=== PATIENT | female | born 1975 | race Two or more races ===

== ENCOUNTER 2024-07-20 20:40 | Emergency (ER) | payer MEDICAID, SELFPAY ==
[2024-07-20 20:41] VITALS: BMI 34.2
--- NOTE | 2024-07-20 21:55 | EDNOTE_ITS ---
Upper Respiratory Inf. RME/HPI General Chief Complaint: Flu Like Symptoms Stated Complaint: FLU / FEVER X3DAYS Time Seen by Provider: 07/20/24 20:46 Arrival date/time: 07/20/24 20:40 This is a 49-year-old female that comes in with complaints of cough, headache, fever and congestion for the past 3 days. Patient denies any sick contacts at home. Related Data Previous Rx's ?Medication ?Instructions ?Recorded ibuprofen 800 mg tablet 800 mg PO TID PRN pain #30 t abs 06/17/17 acetaminophen 500 mg tablet 1,000 mg (2 x 500 mg) PO Q 6H PRN 07/20/24 fever or pain #20 tabs ibuprofen 800 mg tablet (IBU) 800 mg PO Q6H PRN pain # 14 tabs 07/20/24 promethazine-DM 6.25 mg-15 mg/5 mL 5 ml PO Q6H PRN cou gh #240 mL 07/20/24 oral syrup Allergies Allergy/AdvReac Type Severity Reaction Status Date / Time No Known Allergies Allergy Verified 06/17/17 10:00 Course Orders Category Date Time Status Bedside COVID-19 Antigen Test NOW Care 07/20/24 21:54 Active Bedside Influenza A&B Antigen Test NOW Care 07/20/24 21:54 Active XR chest 2V Stat Exams 07/20/24 22:03 Completed Acetaminophen Tab [Tylenol ES Tab] Med 07/20/24 21:55 Discontinued 500 mg PO X1 ONE Ibuprofen Tab [Motrin Tab] Med 07/20/24 21:55 Pending 800 mg PO X1 ONE Promethazine/Dextromethorph [Phenergan Dm Syrup] Med 07/20/24 21:55 Pending 5 ml PO X1 ONE Vital Signs Vital signs: Vital Signs Temperature 99.5 F 07/20/24 21:58 Pulse Rate 100 07/20/24 21:58 Respiratory Rate 18 07/20/24 21:58 Blood Pressure 129/82 07/20/24 21:58 Pulse Oximetry (%) 97 07/20/24 21:58 Oxygen Delivery Method Room Air 07/20/24 21:58 Upper Respiratory Infection MDM Narrative MDM Narrative:: Patient was positive for influenza A. Patient was given Promethazine DM, ibuprofen and Tylenol. Patient feels better. Patient outside the window for Tamiflu. Will treat with supportive measures. Patient told to follow-up with primary provider in 1 to 2 days. Come back to emergency room symptoms change or worsen. chest x ray: FINDINGS: Normal heart size No lobar pneumonia or pulmonary edema The osseous structures are intact IMPRESSION: No pneumonia or pulmonary edema Medications / Prescriptions Medication administrations:: Medication Administration History Ibuprofen (Ibuprofen Tab 400 Mg Tablet) 800 mg PO X1 ONE Stop: 07/20/24 21:56 Promethazine HCl/Dextromethorphan (Promethazine/Dm Syrup 5 Ml Dose) 5 ml PO X1 ONE; Protocol Stop: 07/20/24 21:56 Discontinued Medications Acetaminophen (Acetaminophen 500 Mg Tablet) 500 mg PO X1 ONE Stop: 07/20/24 21:56 Discharge Plan Plan Patient Disposition: HOME (Self Care) Patient condition on transfer: Stable Prescriptions/Referrals Prescriptions/Med Rec: New ibuprofen [IBU] 800 mg tablet 800 mg PO Q6H PRN (Reason: pain) Qty: 14 0RF acetaminophen 500 mg tablet 1,000 mg PO Q6H PRN (Reason: fever or pain) Qty: 20 0RF promethazine-DM 6.25-15 mg/5 mL syrup 5 ml PO Q6H PRN (Reason: cough) Qty: 240 0RF No Action ibuprofen 800 mg tablet 800 mg PO TID PRN (Reason: pain) Qty: 30 0RF Referrals: Temporary Provider,ED [Physician] - In 1 week Problem List Clinical Impression: Influenza A Patient/Caregiver Discharge Instructions Discharge Activity: activity as tolerated Education Materials: ED Influenza (Adult) Additional Instructions: Follow up with primary provider in 1-2 days. Come back to ED if symptoms change or worsen Print Language: [place]ese Stand Alone Forms: [employer] Award Info., Patient Portal Info Letter PA/SENIOR LINUX ENGINEER Supervising Physician PA/SENIOR LINUX ENGINEER Supervising Physician: alli
[2024-07-20 21:58] VITALS: BP 129/82; PULSE 100; RESP 18; TEMP 37.5; O2SAT 97
--- NOTE | 2024-07-20 22:03 | XR_ITS ---
Examination: PA lateral chest 2 views FEV1 upright PA and lateral chest 2 views Standing time client July 20, 2024 10:14 PM INDICATIONS: Coughing congestion beginning 3 days ago. FINDINGS: Normal heart size No lobar pneumonia or pulmonary edema The osseous structures are intact IMPRESSION: No pneumonia or pulmonary edema
[2024-07-20] MEDS: IBUPROFEN TAB 400 MG TABLET 800 MG PO (23:40)
[2024-07-20] MEDS: ACETAMINOPHEN 500 MG TABLET PO (23:40)
== END 2024-07-20 23:45 | disposition home or self-care (01) ==
PROVIDERS: Emergency Provider Emergency Medicine
DX: J10.1 Influenza due to other identified influenza virus with other respiratory manifestations (principal)
CPT/HCPCS: 71046; 87400; 87811; 99283; A9270

== ENCOUNTER 2024-09-28 22:20 | Emergency (ER) | payer SELFPAY ==
[2024-09-28 22:21] VITALS: BMI 31.1
[2024-09-28 22:55] VITALS: BP 145/89; PULSE 100; RESP 18; TEMP 37.2; O2SAT 96
--- NOTE | 2024-09-28 23:04 | EDNOTE_ITS ---
ED Skin Abcess FB-RME/HPI General Chief complaint: General Adult/Misc Complain Stated complaint: POSS INFECTED MOSQITO BITE Time Seen by Provider: 09/28/24 22:58 Arrival date/time: 09/28/24 22:20 49F with no significant PMH presents to ED with L hand skin pain after she got bit by some insect, scratched it, and then it became painful with discharge. Limitations: no limitations Related Data Previous Rx's ?Medication ?Instructions ?Recorded ibuprofen 800 mg tablet 800 mg PO TID PRN pain #30 t abs 06/17/17 acetaminophen 500 mg tablet 1,000 mg (2 x 500 mg) PO Q 6H PRN 07/20/24 fever or pain #20 tabs ibuprofen 800 mg tablet (IBU) 800 mg PO Q6H PRN pain # 14 tabs 07/20/24 promethazine-DM 6.25 mg-15 mg/5 mL 5 ml PO Q6H PRN cou gh #240 mL 07/20/24 oral syrup doxycycline hyclate 100 mg tablet 100 mg PO BID 7 days #14 tabs 09/28/24 Allergies Allergy/AdvReac Type Severity Reaction Status Date / Time No Known Allergies Allergy Verified 09/28/24 22:26 Review of Systems Review of Systems Systems Reviewed: All systems reviewed, normal except as documented Constitutional Constitutional: Reports system reviewed and no additional complaints, except as documented, Denies fever(s) and Denies headache(s) ENT Ears, Nose, Mouth, and Throat: Denies disequilibrium and Denies headache(s) Cardiovascular Cardiovascular: Reports system reviewed and no additional complaints, except as documented, Denies chest pain and Denies dyspnea Respiratory Respiratory: Reports system reviewed and no additional complaints, except as documented, Denies cough and Denies dyspnea Gastrointestinal Gastrointestinal: Reports system reviewed and no additional complaints, except as documented, Denies abdominal pain, Denies nausea and Denies vomiting Integumentary/Breasts Skin/Breast: Reports as per HPI and Reports skin pain Neurologic Neurologic: Reports system reviewed and no additional complaints, except as documented, Denies confusion, Denies disequilibrium and Denies headache(s) Psychiatric Psychiatric: Denies confusion Past Medical History Social History SMOKING STATUS: Never smoker ED Exam General Limitations: Present no limitations General appearance: Present alert and in no apparent distress Head Head exam: Present atraumatic Eye Eye exam: Present normal appearance, PERRL and EOMI ENT ENT exam: Present normal exam, normal oropharynx and mucous membranes moist Neck Neck exam: Present normal inspection, full ROM and trachea midline Chest Chest inspection: Present normal inspection and symmetric chest wall rise Respiratory Respiratory exam: Present normal lung sounds bilaterally Cardiovascular Cardiovascular exam: Present regular rate, normal rhythm and normal heart sounds Abdominal Exam Abdominal exam: Present soft and normal bowel sounds Extremities Exam Extremities exam: Present full ROM Expanded Upper Extremity Exam Hand exam: Present full ROM (L dorsal hand), tenderness, swelling and erythema Back Exam Back exam: Present normal inspection and full ROM Neurological Exam Neurological exam: Present alert, oriented X3 and CN II-XII intact Psychiatric Psychiatric exam: Present normal affect and normal mood Skin Skin exam: Present warm, dry, intact and normal color Course Quality Measures none Orders Category Date Time Status DiphenhydrAMINE [Benadryl] Med 09/28/24 23:01 Once 25 mg PO X1 ONE Doxycycline [Vibramycin] Med 09/28/24 23:01 Once 100 mg PO X1 ONE Vital Signs Vital signs: Vital Signs Temperature 99 F 09/28/24 22:55 Pulse Rate 100 09/28/24 22:55 Respiratory Rate 18 09/28/24 22:55 Blood Pressure 145/89 H 09/28/24 22:55 Pulse Oximetry (%) 96 09/28/24 22:55 Oxygen Delivery Method Room Air 09/28/24 22:55 O2 at 96% on RA and WNLs Skin / Abscess / Foreign Body MDM Narrative MDM Narrative:: 49F with no significant PMH presents to ED with L hand skin pain after she got bit by some insect, scratched it, and then it became painful with discharge. Physical exam reveals small area on L dorsal hand of redness and tenderness. Patient is afebrile, calm, and alert. Meds and curriculum counselor given. Patient data External records reviewed:: [facility] previous records Clinical information provided by:: patient Social determinants that could affect healthcare access:: none Patient has the following chronic illnesses:: none How is presenting disease/condition affected by chronic disease/condition?: no chronic disease Evaluation data The following diagnostics were reviewed and interpreted by me:: other (specify) (none) Lab and/or radiology exams considered but not ordered:: not ordered Interpretation Summary: n/a Medications / Prescriptions Medications or Prescriptions considered but not ordered:: ordered Medication administrations:: Medication Administration History Diphenhydramine HCl (Diphenhydramine 25 Mg Capsule) 25 mg PO X1 ONE Stop: 09/28/24 23:02 Doxycycline Hyclate (Doxycycline 100 Mg Tablet) 100 mg PO X1 ONE Stop: 09/28/24 23:02 above Consultations Consultation(s) initiated? (list below): No Diagnosis Skin/Abscess Differential Diagnosis: abscess of skin or subcutaneous tissue, viral exanthem, dermatophytosis, urticaria, herpes zoster, allergic reaction to drug, cellulitis, eczema, insect bites, impetigo and contact dermatitis Most likely diagnosis given after review of the tests above:: cellulitis Admission Indicated Admission indicated?: not indicated Admission Request Was there a request for admission?: No Disposition Plan Disposition Plan: Discharge Discharge Attestation Discharge Attestation: The patient and all family members were given an opportunity to ask questions and understood the discharge instructions. Discharge instructions specifically effects, indications for sooner follow up or return to the emergency department, and the expected course of current diagnosis. Patient condition: Stable Discharge Plan Plan Patient Disposition: HOME (Self Care) Discharge Disposition comment: Stable Prescriptions/Referrals Prescriptions/Med Rec: New doxycycline hyclate 100 mg tablet 100 mg PO BID 7 Days Qty: 14 0RF No Action ibuprofen 800 mg tablet 800 mg PO TID PRN (Reason: pain) Qty: 30 0RF ibuprofen [IBU] 800 mg tablet 800 mg PO Q6H PRN (Reason: pain) Qty: 14 0RF acetaminophen 500 mg tablet 1,000 mg PO Q6H PRN (Reason: fever or pain) Qty: 20 0RF promethazine-DM 6.25-15 mg/5 mL syrup 5 ml PO Q6H PRN (Reason: cough) Qty: 240 0RF Problem List Clinical Impression: Cellulitis Patient/Caregiver Discharge Instructions Education Materials: ED Cellulitis Additional Instructions: Please follow-up with PCP within 24-48 hours and return immediately if symptoms worsen. Take OTC antihistamine as needed until symptoms resolve. Avoid scratching. Print Language: Swazi Stand Alone Forms: Patient Portal Info Letter PA/BHUPINDER Supervising Physician ANGY/BHUPINDER Supervising Physician: Dr. Iyer
== END 2024-09-28 23:16 | disposition home or self-care (01) ==
LOC: SERX 23:51
PROVIDERS: Emergency Provider Emergency Medicine; PCP Family Medicine
DX: S60.562A Insect bite (nonvenomous) of left hand, initial encounter (principal); L03.114 Cellulitis of left upper limb; W57.XXXA Bitten or stung by nonvenomous insect and other nonvenomous arthropods, initial encounter
CPT/HCPCS: 99283; A9270